=== PATIENT | female | born 1955 | race Asian ===

== ENCOUNTER 2016-09-15 09:49 | Inpatient (IN) | payer MEDICARE, MEDICAID ==
[~2016-09-15] VITALS: Ht 157.5 cm; Wt 54.8 kg
[~2016-09-15 09:49] MED LIST: AMLO10TA4 PO; ASPI81TA50 PO; CALC200T3 PO; ETHI1TAB PO; INSU100V8 SQ; LEVO100T5 PO; SODI650T PO
[2016-09-15] MEDS ORDERED: [UNRECOGNIZED DRUG - CODE] IJ (10:44)
[2016-09-15 11:08] LABS: ASPARTATE AMINO TRANSFERASE 37 U/L (15-37); BLOOD UREA NITROGEN 53 mg/dL (7-18)
[2016-09-15] MEDS ORDERED: SODIUM CHLORIDE FLUSH 10ML SYR IVF PRN (13:00)
[2016-09-15] MEDS ORDERED: DOCUSATE 100 MG CAPSULE PO PRN (14:00)
[2016-09-15] MEDS: HEPARIN 5,000 UNITS/ML, 1ML SQ SCH ×2 (14:00→22:02)
[2016-09-15] MEDS ORDERED: POLYETHYLENE GLYCOL 17 GM PACKET PO PRN (14:00)
[2016-09-15] MEDS ORDERED: LABETALOL 5MG/ML, 20ML IVPush PRN (14:00)
[2016-09-15] MEDS ORDERED: hydrALAzine 20 MG/ML, 1ML IV PRN (14:00)
[2016-09-15] MEDS ORDERED: ACETAMINOPHEN 325 MG TABLET PO PRN (14:00)
[2016-09-15] MEDS ORDERED: INSULIN DETEMIR 100 UNITS/ML, PEN SQ-INSULIN SCH (14:00)
[2016-09-15] MEDS ORDERED: ONDA4TAB13 SL (14:01)
[2016-09-15] MEDS ORDERED: FERR324T8 PO (14:01)
[2016-09-15] MEDS ORDERED: HYDR-3342 PO (14:01)
[2016-09-15] MEDS ORDERED: ROPI0.5T2 PO (14:01)
[2016-09-15] MEDS ORDERED: CALC667C PO (14:01)
[2016-09-15] MEDS ORDERED: CHOL3000 PO (14:01)
[2016-09-15] MEDS: HYDROcodone/APAP 5/325 TABLET PO PRN ×2 (16:55→18:15)
[2016-09-15] MEDS: CEFTRIAXONE PMX 1GM/50ML 50 ML IV SCH (16:55)
[2016-09-15] MEDS: INSULIN ASPART 100 UNITS/ML, PEN SQ-INSULIN SCH ×2 (18:00→22:01)
[2016-09-15 19:55] VITALS: BP 156/65
[2016-09-15] MEDS: SODIUM CHLORIDE FLUSH 3ML SYRINGE IVF SCH (21:00)
[2016-09-15] MEDS ORDERED: GENTAMICIN CRM 0.1%, 30GM TP PRN (22:00)
[2016-09-15] MEDS: morphine SULFATE 10 MG/ML, 1ML IVPush PRN (22:07)
[2016-09-16 01:32] VITALS: BP 160/73
[2016-09-16 05:26] LABS: BLOOD UREA NITROGEN 54 mg/dL (7-18)
[2016-09-16] MEDS: HEPARIN 5,000 UNITS/ML, 1ML SQ SCH ×3 (05:33→21:08)
[2016-09-16 05:34] LABS: TOTAL IRON BINDING CAPACITY 217 mcg/dL (250-450)
[2016-09-16] MEDS: LEVOTHYROXINE 100 MCG TABLET PO SCH (08:14)
[2016-09-16] MEDS: SODIUM BICARBONATE 650 MG TABLET PO SCH (08:14)
[2016-09-16] MEDS: INSULIN ASPART 100 UNITS/ML, PEN SQ-INSULIN SCH ×4 (08:14→21:08)
[2016-09-16] MEDS: ETHINYL ESTRADIOL HOMEMEDPO SCH (08:15)
[2016-09-16] MEDS: AMLODIPINE 5 MG TABLET PO SCH (08:15)
[2016-09-16] MEDS: SENNA/DOCUSATE TABLET PO SCH (08:15)
[2016-09-16] MEDS: ASPIRIN 81 MG TABLET EC PO SCH (08:15)
[2016-09-16] MEDS: [UNRECOGNIZED DRUG - OTHER] HOMEMEDPO SCH (08:15)
[2016-09-16] MEDS: DROSPIRENONE HOMEMEDPO SCH (08:15)
[2016-09-16] MEDS: SODIUM CHLORIDE FLUSH 3ML SYRINGE IVF SCH ×2 (08:15→20:36)
[2016-09-16] MEDS: CALCIUM CARBONATE 500 MG TAB.CHEW PO SCH (08:17)
[2016-09-16 08:25] VITALS: BP 141/68
[2016-09-16] MEDS ORDERED: DARBEPOETIN 60 MCG/ML SQ SCH (09:00)
[2016-09-16] MEDS ORDERED: ERGOCALCIFEROL 50,000 UNIT CAPSULE PO SCH (09:30)
[2016-09-16] MEDS: HYDROcodone/APAP 5/325 TABLET PO PRN (10:02)
[2016-09-16] MEDS: CEFTRIAXONE PMX 1GM/50ML 50 ML IV SCH (14:05)
[2016-09-16 14:12] VITALS: BP 165/76
[2016-09-16 19:14] VITALS: BP 160/71
[2016-09-16] MEDS: ONDANSETRON 2MG/ML, 2ML IVPush PRN (20:10)
[2016-09-16] MEDS ORDERED: MORPHINE SULFATE 4 MG/ML, 1ML ONE (21:04)
[2016-09-16] MEDS: ROPINIROLE 1MG TABLET PO PRN (21:08)
[2016-09-16] MEDS: morphine SULFATE 10 MG/ML, 1ML IVPush PRN (21:09)
[2016-09-17] MEDS: HEPARIN 5,000 UNITS/ML, 1ML SQ SCH ×3 (05:25→21:57)
[2016-09-17 07:38] VITALS: BP 180/76
[2016-09-17] MEDS: SENNA/DOCUSATE TABLET PO SCH (07:54)
[2016-09-17] MEDS: SODIUM BICARBONATE 650 MG TABLET PO SCH (07:55)
[2016-09-17] MEDS: LEVOTHYROXINE 100 MCG TABLET PO SCH (07:55)
[2016-09-17] MEDS: ASPIRIN 81 MG TABLET EC PO SCH (07:55)
[2016-09-17] MEDS: SODIUM CHLORIDE FLUSH 3ML SYRINGE IVF SCH ×2 (07:55→21:00)
[2016-09-17] MEDS: AMLODIPINE 5 MG TABLET PO SCH (07:55)
[2016-09-17] MEDS: INSULIN ASPART 100 UNITS/ML, PEN SQ-INSULIN SCH ×4 (07:56→21:58)
[2016-09-17] MEDS: DROSPIRENONE HOMEMEDPO SCH (07:59)
[2016-09-17] MEDS: ETHINYL ESTRADIOL HOMEMEDPO SCH (07:59)
[2016-09-17] MEDS: [UNRECOGNIZED DRUG - OTHER] HOMEMEDPO SCH (07:59)
[2016-09-17] MEDS: CALCIUM CARBONATE 500 MG TAB.CHEW PO SCH (08:00)
[2016-09-17] MEDS: ONDANSETRON 2MG/ML, 2ML IVPush PRN ×2 (08:12→20:10)
[2016-09-17] MEDS: CEFTRIAXONE PMX 1GM/50ML 50 ML IV SCH (14:21)
[2016-09-17 14:47] VITALS: BP 161/89
[2016-09-17 20:08] VITALS: BP 148/65
[2016-09-18 01:17] VITALS: BP 165/74
[2016-09-18] MEDS: HEPARIN 5,000 UNITS/ML, 1ML SQ SCH ×3 (05:50→21:08)
[2016-09-18 07:36] VITALS: BP 170/78
[2016-09-18] MEDS: LEVOTHYROXINE 100 MCG TABLET PO SCH (08:52)
[2016-09-18] MEDS: INSULIN ASPART 100 UNITS/ML, PEN SQ-INSULIN SCH ×4 (08:52→21:07)
[2016-09-18] MEDS: ASPIRIN 81 MG TABLET EC PO SCH (08:53)
[2016-09-18] MEDS: SENNA/DOCUSATE TABLET PO SCH (08:53)
[2016-09-18] MEDS: AMLODIPINE 5 MG TABLET PO SCH (08:53)
[2016-09-18] MEDS: CALCIUM CARBONATE 500 MG TAB.CHEW PO SCH (08:54)
[2016-09-18] MEDS: SODIUM BICARBONATE 650 MG TABLET PO SCH (08:55)
[2016-09-18] MEDS: SODIUM CHLORIDE FLUSH 3ML SYRINGE IVF SCH ×2 (08:57→21:00)
[2016-09-18] MEDS: ETHINYL ESTRADIOL HOMEMEDPO SCH (08:57)
[2016-09-18] MEDS: DROSPIRENONE HOMEMEDPO SCH (08:57)
[2016-09-18] MEDS: [UNRECOGNIZED DRUG - OTHER] HOMEMEDPO SCH (08:57)
[2016-09-18 12:51] VITALS: BP 174/95
[2016-09-18] MEDS: CEFTRIAXONE PMX 1GM/50ML 50 ML IV SCH (13:52)
[2016-09-18 19:35] VITALS: BP 146/67
[2016-09-18] MEDS: ONDANSETRON 2MG/ML, 2ML IVPush PRN (21:07)
[2016-09-18] MEDS: ROPINIROLE 1MG TABLET PO PRN (22:16)
[2016-09-19 04:00] VITALS: BP 166/80
[2016-09-19] MEDS: HEPARIN 5,000 UNITS/ML, 1ML SQ SCH ×3 (05:59→20:09)
[2016-09-19] MEDS: INSULIN ASPART 100 UNITS/ML, PEN SQ-INSULIN SCH ×4 (07:00→20:21)
[2016-09-19 07:27] VITALS: BP 183/81
[2016-09-19] MEDS: AMLODIPINE 5 MG TABLET PO SCH ×2 (07:59→20:09)
[2016-09-19] MEDS: ASPIRIN 81 MG TABLET EC PO SCH (07:59)
[2016-09-19] MEDS: [UNRECOGNIZED DRUG - OTHER] HOMEMEDPO SCH (08:00)
[2016-09-19] MEDS: SENNA/DOCUSATE TABLET PO SCH (08:00)
[2016-09-19] MEDS: DROSPIRENONE HOMEMEDPO SCH (08:00)
[2016-09-19] MEDS: ETHINYL ESTRADIOL HOMEMEDPO SCH (08:00)
[2016-09-19] MEDS: SODIUM BICARBONATE 650 MG TABLET PO SCH (08:00)
[2016-09-19] MEDS: LEVOTHYROXINE 100 MCG TABLET PO SCH (08:00)
[2016-09-19] MEDS: SODIUM CHLORIDE FLUSH 3ML SYRINGE IVF SCH ×2 (08:02→20:13)
[2016-09-19] MEDS: CALCIUM CARBONATE 500 MG TAB.CHEW PO SCH (09:00)
[2016-09-19 13:28] VITALS: BP 160/80
[2016-09-19] MEDS: ONDANSETRON 2MG/ML, 2ML IVPush PRN ×2 (14:00→20:09)
[2016-09-19] MEDS: CEFTRIAXONE PMX 1GM/50ML 50 ML IV SCH (14:00)
[2016-09-19 19:57] VITALS: BP 170/79
[2016-09-19] MEDS: HYDROcodone/APAP 5/325 TABLET PO PRN (20:21)
[2016-09-20 02:18] VITALS: BP 156/79
[2016-09-20] MEDS: HEPARIN 5,000 UNITS/ML, 1ML SQ SCH ×3 (06:00→21:16)
[2016-09-20] MEDS: LEVOTHYROXINE 100 MCG TABLET PO SCH (08:30)
[2016-09-20] MEDS: SODIUM BICARBONATE 650 MG TABLET PO SCH (08:30)
[2016-09-20] MEDS: AMLODIPINE 5 MG TABLET PO SCH ×2 (08:30→21:15)
[2016-09-20] MEDS: INSULIN ASPART 100 UNITS/ML, PEN SQ-INSULIN SCH ×4 (08:30→21:16)
[2016-09-20] MEDS: SENNA/DOCUSATE TABLET PO SCH (08:30)
[2016-09-20] MEDS: CALCIUM CARBONATE 500 MG TAB.CHEW PO SCH ×2 (08:31→08:33)
[2016-09-20] MEDS: ASPIRIN 81 MG TABLET EC PO SCH (09:00)
[2016-09-20] MEDS: SODIUM CHLORIDE FLUSH 3ML SYRINGE IVF SCH ×2 (09:00→21:17)
[2016-09-20] MEDS: DROSPIRENONE HOMEMEDPO SCH (09:00)
[2016-09-20] MEDS: [UNRECOGNIZED DRUG - OTHER] HOMEMEDPO SCH (09:00)
[2016-09-20] MEDS: ETHINYL ESTRADIOL HOMEMEDPO SCH (09:00)
[2016-09-20 09:30] VITALS: BP 155/89
[2016-09-20 13:17] VITALS: BP 165/73
[2016-09-20] MEDS: CEFTRIAXONE PMX 1GM/50ML 50 ML IV SCH (14:08)
[2016-09-20] MEDS ORDERED: PROTAMINE SULFATE 10 MG/ML, 5ML ONE (15:25)
[2016-09-20] MEDS ORDERED: HEPARIN 1,000 UNITS/ML, 30ML ONE (15:25)
[2016-09-20] MEDS ORDERED: THROMBIN 5,000 UNIT VIAL TP ONE (15:25)
[2016-09-20] MEDS ORDERED: BUPIVACAINE/PF 0.5% ONE (15:25)
[2016-09-20] MEDS ORDERED: HEPARIN 1,000 UNITS/ML, 10ML ONE (15:25)
[2016-09-20] MEDS ORDERED: FENTANYL PF 250 MCG/5ML ONE (16:17)
[2016-09-20] MEDS ORDERED: NEOSTIGMINE 1 MG/ML, 10ML ONE (16:19)
[2016-09-20] MEDS ORDERED: CEFAZOLIN 1,000 MG ONE (16:19)
[2016-09-20] MEDS ORDERED: PHENYLEPHRINE 10 MG/ML ONE (16:19)
[2016-09-20] MEDS ORDERED: PROPOFOL 10 MG/ML, 20ML ONE (16:19)
[2016-09-20] MEDS ORDERED: ONDANSETRON 2MG/ML, 2ML ONE (16:19)
[2016-09-20] MEDS ORDERED: LIDOCAINE 2%, 10ML ONE (16:19)
[2016-09-20] MEDS ORDERED: GLYCOPYRROLATE 0.2MG/1ML ONE (16:19)
[2016-09-20] MEDS ORDERED: ROCURONIUM 10 MG/ML ONE (16:19)
[2016-09-20] MEDS ORDERED: DEXAMETHASONE 4 MG/ML, 1ML ONE (16:19)
[2016-09-20] MEDS ORDERED: FENTANYL PF 100 MCG/2ML IV PRN (18:00)
[2016-09-20] MEDS ORDERED: PROMETHAZINE 25 MG/ML, 1ML IV PRN (18:00)
[2016-09-20] MEDS ORDERED: HYDROmorphone 1 MG/ML, 1ML IV PRN (18:00)
[2016-09-20] MEDS ORDERED: ONDANSETRON 2MG/ML, 2ML IVPush PRN (18:00)
[2016-09-20] MEDS ORDERED: LABETALOL 5MG/ML, 20ML IV PRN (18:00)
[2016-09-20] MEDS ORDERED: OXYcodone 5 MG/5 ML ORAL.SOL UDC PO PRN (18:00)
[2016-09-20] MEDS ORDERED: hydrALAzine 20 MG/ML, 1ML IV PRN (18:00)
[2016-09-20] MEDS ORDERED: ACETAMINOPHEN 325 MG TABLET PO PRN (18:00)
[2016-09-20 20:15] VITALS: BP 147/69
[2016-09-20] MEDS: ROPINIROLE 1MG TABLET PO PRN (22:02)
[2016-09-20] MEDS: HYDROcodone/APAP 5/325 TABLET PO PRN (23:02)
[2016-09-21 02:35] VITALS: BP 107/60
[2016-09-21] MEDS: HYDROcodone/APAP 5/325 TABLET PO PRN ×3 (05:36→17:12)
[2016-09-21] MEDS: HEPARIN 5,000 UNITS/ML, 1ML SQ SCH ×2 (05:36→14:21)
[2016-09-21] MEDS: INSULIN ASPART 100 UNITS/ML, PEN SQ-INSULIN SCH ×3 (07:39→16:37)
[2016-09-21] MEDS: ETHINYL ESTRADIOL HOMEMEDPO SCH (08:51)
[2016-09-21] MEDS: [UNRECOGNIZED DRUG - OTHER] HOMEMEDPO SCH (08:51)
[2016-09-21] MEDS: DROSPIRENONE HOMEMEDPO SCH (08:51)
[2016-09-21] MEDS: ASPIRIN 81 MG TABLET EC PO SCH (08:52)
[2016-09-21] MEDS: AMLODIPINE 5 MG TABLET PO SCH (08:52)
[2016-09-21] MEDS: SODIUM CHLORIDE FLUSH 3ML SYRINGE IVF SCH (08:52)
[2016-09-21] MEDS: CALCIUM CARBONATE 500 MG TAB.CHEW PO SCH (08:53)
[2016-09-21] MEDS: LEVOTHYROXINE 100 MCG TABLET PO SCH (08:53)
[2016-09-21] MEDS: SENNA/DOCUSATE TABLET PO SCH (08:53)
[2016-09-21] MEDS: SODIUM BICARBONATE 650 MG TABLET PO SCH (08:53)
[2016-09-21 09:30] VITALS: BP 160/74
[2016-09-21 13:23] VITALS: BP 133/74
[2016-09-21] MEDS: CEFTRIAXONE PMX 1GM/50ML 50 ML IV SCH (14:21)
[2016-09-21] MEDS ORDERED: CALC200T24 PO (14:26)
[2016-09-21] MEDS ORDERED: HYDR-3240 PO (14:26)
[2016-09-21] MEDS ORDERED: ERGO500017 PO (14:26)
[2016-09-21] MEDS ORDERED: GENT30CR TP (14:26)
[2016-09-21] MEDS ORDERED: INSU100I18 SQ-INSULIN (14:26)
[2016-09-21] MEDS ORDERED: DOCU-30 PO (14:26)
[2016-09-21] MEDS ORDERED: POLY17PO5 PO (14:26)
[2016-09-21] MEDS: ONDANSETRON 2MG/ML, 2ML IVPush PRN (17:46)
== END 2016-09-21 18:00 | disposition home health service (06) | DRG 673 ==
LOC: ED 13:11 → SUATTDRO 13:26 → EDIP 13:35 → 4EST 15:05 → 4WST 20:49
PROVIDERS: ADMIT Family Medicine; ATTEND Family Medicine
PROC: 0T9B70Z Drainage of Bladder with Drainage Device, Via Natural or Artificial Opening (ICD-10-PCS; principal; 2016-09-15)
PROC: 5A1D60Z (ICD-10-PCS; 2016-09-15)
PROC: 031C0ZF Bypass Left Radial Artery to Lower Arm Vein, Open Approach (ICD-10-PCS; 2016-09-20)
DX: I12.0 Hypertensive chronic kidney disease with stage 5 chronic kidney disease or end stage renal disease (principal); N18.6 End stage renal disease; E43 Unspecified severe protein-calorie malnutrition; N17.9 Acute kidney failure, unspecified; E87.1 Hypo-osmolality and hyponatremia; N39.0 Urinary tract infection, site not specified; D63.1 Anemia in chronic kidney disease; E03.9 Hypothyroidism, unspecified; E11.22 Type 2 diabetes mellitus with diabetic chronic kidney disease; E11.65 Type 2 diabetes mellitus with hyperglycemia; E55.9 Vitamin D deficiency, unspecified; E78.5 Hyperlipidemia, unspecified; E87.70 Fluid overload, unspecified; K59.00 Constipation, unspecified; M54.5 Low back pain; N31.9 Neuromuscular dysfunction of bladder, unspecified; Z80.42 Family history of malignant neoplasm of prostate; Z83.3 Family history of diabetes mellitus; Z84.1 Family history of disorders of kidney and ureter; Z99.2 Dependence on renal dialysis; Z88.8 Allergy status to other drugs, medicaments and biological substances; Z88.6 Allergy status to analgesic agent; Z90.49 Acquired absence of other specified parts of digestive tract; Z68.22 Body mass index [BMI] 22.0-22.9, adult; N32.3 Diverticulum of bladder; E11.43 Type 2 diabetes mellitus with diabetic autonomic (poly)neuropathy
CPT/HCPCS: 36415; 80048; 80053; 81001; 82306; 82330; 82728; 82803; 82947; 82962; 83540; 83550; 83735; 83970; 84100; 84132; 84295; 85014; 85025; 86480; 86704; 86706; 86708; 86803; 87086; 87340; 93005; 96372; J0690; J0696; J0881; J1100; J1644; J1815; J2405; J2704; J2710; J2720; J3010; J3490; C1757; J2270; J2370

== ENCOUNTER 2016-10-14 21:14 | Inpatient (IN) | payer MEDICARE, MEDICAID ==
[~2016-10-14] VITALS: Ht 157.5 cm; Wt 59.2 kg
[~2016-10-14 21:14] MED LIST changes: +CALC200T24 PO; +CALC667C PO; +CHOL3000 PO; +DOCU-30 PO; +ERGO500017 PO; +FERR324T8 PO; +GENT30CR TP; +HYDR-3240 PO; +HYDR-3342 PO; +INSU100I18 SQ-INSULIN; +ONDA4TAB13 SL; +POLY17PO5 PO; +ROPI0.5T2 PO; +[UNRECOGNIZED DRUG - CODE] IJ
[2016-10-14] MEDS ORDERED: ONDANSETRON 2MG/ML, 2ML ONE (22:17)
[2016-10-14] MEDS ORDERED: FAMOTIDINE 20 MG/2 ML ONE (22:18)
[2016-10-14] MEDS ORDERED: ONDANSETRON 2MG/ML, 2ML IVPush ONE (22:30)
[2016-10-14] MEDS ORDERED: SODIUM CHLORIDE FLUSH 10ML SYR IVF ONE (22:30)
[2016-10-14] MEDS ORDERED: FAMOTIDINE 20 MG/2 ML IVP ONE (22:30)
[2016-10-14] MEDS ORDERED: SODIUM CHLORIDE 0.9% 1,000ML IVBOLUS ONE (22:30)
[2016-10-14 22:56] LABS: BLOOD UREA NITROGEN 50 mg/dL (7-18)
[2016-10-14 23:01] LABS: ASPARTATE AMINO TRANSFERASE 34 U/L (15-37)
[2016-10-15 01:14] VITALS: BP 163/74
[2016-10-15 01:20] VITALS: BP 163/74
[2016-10-15] MEDS ORDERED: SODIUM CHLORIDE 0.9% 1,000 ML IV SCH (01:29)
[2016-10-15] MEDS: INSULIN DETEMIR 100 UNITS/ML, PEN SQ-INSULIN SCH ×2 (01:30→21:28)
[2016-10-15] MEDS ORDERED: DOCUSATE 100 MG CAPSULE PO PRN (01:30)
[2016-10-15] MEDS ORDERED: METOCLOPRAMIDE 5 MG/ML, 2ML IVPush PRN (01:30)
[2016-10-15] MEDS ORDERED: LABETALOL 5MG/ML, 20ML IVPush PRN (01:30)
[2016-10-15] MEDS ORDERED: POLYETHYLENE GLYCOL 17 GM PACKET PO PRN (01:30)
[2016-10-15] MEDS ORDERED: PROMETHAZINE 25 MG/ML, 1ML IM PRN (01:30)
[2016-10-15] MEDS ORDERED: GENTAMICIN CRM 0.1%, 30GM TP PRN (01:30)
[2016-10-15] MEDS ORDERED: ERGOCALCIFEROL 50,000 UNIT CAPSULE PO SCH (01:30)
[2016-10-15] MEDS ORDERED: ENALAPRILAT 1.25 MG/ML, 2ML IV PRN (01:30)
[2016-10-15] MEDS ORDERED: hydrALAzine 20 MG/ML, 1ML IV PRN (01:30)
[2016-10-15] MEDS: HEPARIN 5,000 UNITS/ML, 1ML SQ SCH ×3 (02:14→18:33)
[2016-10-15] MEDS: LEVOTHYROXINE 100 MCG TABLET PO SCH (05:56)
[2016-10-15] MEDS: ONDANSETRON 2MG/ML, 2ML IVPush PRN (06:24)
[2016-10-15 06:40] VITALS: BP 181/81
[2016-10-15] MEDS: INSULIN ASPART 100 UNITS/ML, PEN SQ-INSULIN SCH ×4 (08:00→21:00)
[2016-10-15] MEDS: ROPINIROLE 0.5MG TABLET PO SCH ×3 (10:04→18:34)
[2016-10-15] MEDS: CALCIUM ACETATE 667 MG CAPSULE PO SCH ×3 (10:04→18:15)
[2016-10-15 10:26] LABS: BLOOD UREA NITROGEN 50 mg/dL (7-18)
[2016-10-15 11:03] LABS: PATH.CAST-FLAG NOT PRESENT; SPERM-FLAG NOT PRESENT; XTAL-FLAG NOT PRESENT; YLC-FLAG NOT PRESENT
[2016-10-15] MEDS: POLYETHYLENE GLYCOL 17 GM PACKET PO SCH (11:50)
[2016-10-15] MEDS: AMLODIPINE 5 MG TABLET PO SCH (11:51)
[2016-10-15] MEDS: ASPIRIN 81 MG TABLET EC PO SCH (11:51)
[2016-10-15] MEDS: DOCUSATE 100 MG CAPSULE PO SCH ×2 (11:51→21:28)
[2016-10-15 12:41] VITALS: BP 196/92
[2016-10-15 16:02] VITALS: BP 151/76
[2016-10-15] MEDS: CEFTRIAXONE PMX 1GM/50ML 50 ML IV SCH (16:26)
[2016-10-15] MEDS: ACETAMINOPHEN 325 MG TABLET PO PRN (19:51)
[2016-10-15 20:47] VITALS: BP 167/72
[2016-10-16] MEDS: ONDANSETRON 2MG/ML, 2ML IVPush PRN ×3 (00:56→14:03)
[2016-10-16 00:58] LABS: POTASSIUM,URINE RANDOM 16 mmol/L
[2016-10-16] MEDS: HEPARIN 5,000 UNITS/ML, 1ML SQ SCH ×3 (01:15→17:30)
[2016-10-16 02:50] VITALS: BP 144/77
[2016-10-16] MEDS ORDERED: DEXTROSE 50%, 50ML SYRINGE ONE (03:44)
[2016-10-16] MEDS: DEXTROSE 50%, 50ML SYRINGE IVPush PRN ×2 (03:55→07:39)
[2016-10-16] MEDS ORDERED: DEXTROSE 4 GM TAB.CHEW PO PRN (04:00)
[2016-10-16] MEDS ORDERED: GLUCAGON 1 MG IM PRN (04:00)
[2016-10-16 04:26] LABS: ASPARTATE AMINO TRANSFERASE 29 U/L (15-37); BLOOD UREA NITROGEN 45 mg/dL (7-18)
[2016-10-16] MEDS: LEVOTHYROXINE 100 MCG TABLET PO SCH (05:38)
[2016-10-16] MEDS: INSULIN ASPART 100 UNITS/ML, PEN SQ-INSULIN SCH ×4 (07:00→20:20)
[2016-10-16 07:23] VITALS: BP 160/70
[2016-10-16] MEDS ORDERED: SODIUM CHLORIDE 0.9% 1,000 ML IV ONE (09:00)
[2016-10-16] MEDS: AMLODIPINE 5 MG TABLET PO SCH (09:53)
[2016-10-16] MEDS: CALCIUM ACETATE 667 MG CAPSULE PO SCH ×3 (09:53→17:29)
[2016-10-16] MEDS: DOCUSATE 100 MG CAPSULE PO SCH ×2 (09:53→20:40)
[2016-10-16] MEDS: ASPIRIN 81 MG TABLET EC PO SCH (09:53)
[2016-10-16] MEDS: ROPINIROLE 0.5MG TABLET PO SCH ×4 (09:53→22:29)
[2016-10-16] MEDS: POLYETHYLENE GLYCOL 17 GM PACKET PO SCH (09:53)
[2016-10-16] MEDS: SODIUM CHLORIDE FLUSH 10ML SYR IVF SCH ×2 (09:54→20:41)
[2016-10-16] MEDS ORDERED: VANCOMYCIN PMX 1GM/200ML 200 ML IV ONE (14:00)
[2016-10-16 14:39] VITALS: BP 182/85
[2016-10-16] MEDS ORDERED: PHARMACOKINETIC CONSULTATION MC ONE (15:00)
[2016-10-16] MEDS ORDERED: VANCOMYCIN 1,100 MG in SODIUM CHLORIDE 0.9% 250 ML IV ONE (15:00)
[2016-10-16] MEDS ORDERED: PHARMACOKINETIC MONITORING MC PRN (15:00)
[2016-10-16] MEDS ORDERED: VANCOMYCIN PER PHARMACY MC PRN (15:00)
[2016-10-16] MEDS: CEFTRIAXONE PMX 1GM/50ML 50 ML IV SCH (15:37)
[2016-10-16 20:42] VITALS: BP 179/79
[2016-10-16] MEDS: ACETAMINOPHEN 325 MG TABLET PO PRN (20:48)
[2016-10-16 22:01] VITALS: BP 164/81
[2016-10-17] MEDS: HEPARIN 5,000 UNITS/ML, 1ML SQ SCH ×2 (00:53→09:59)
[2016-10-17 01:19] VITALS: BP 181/85
[2016-10-17 01:28] VITALS: BP 186/88
[2016-10-17 03:05] VITALS: BP 169/92
[2016-10-17] MEDS: LEVOTHYROXINE 100 MCG TABLET PO SCH (05:18)
[2016-10-17 06:24] VITALS: BP 179/79
[2016-10-17] MEDS: INSULIN ASPART 100 UNITS/ML, PEN SQ-INSULIN SCH ×2 (07:00→11:00)
[2016-10-17] MEDS: AMLODIPINE 5 MG TABLET PO SCH (08:10)
[2016-10-17] MEDS: ASPIRIN 81 MG TABLET EC PO SCH (08:10)
[2016-10-17] MEDS: DOCUSATE 100 MG CAPSULE PO SCH (08:11)
[2016-10-17] MEDS: SODIUM CHLORIDE FLUSH 10ML SYR IVF SCH (08:11)
[2016-10-17] MEDS: POLYETHYLENE GLYCOL 17 GM PACKET PO SCH (08:11)
[2016-10-17] MEDS: ROPINIROLE 0.5MG TABLET PO SCH ×2 (08:11→11:11)
[2016-10-17] MEDS: CALCIUM ACETATE 667 MG CAPSULE PO SCH ×2 (08:11→11:11)
[2016-10-17 08:24] LABS: BLOOD UREA NITROGEN 43 mg/dL (7-18)
[2016-10-17] MEDS: ONDANSETRON 2MG/ML, 2ML IVPush PRN (12:05)
[2016-10-17] MEDS ORDERED: AMOX-291 PO (14:45)
[2016-10-17] MEDS ORDERED: AMOXICILLIN 500 MG CAPSULE PO SCH (21:00)
== END 2016-10-17 15:46 | disposition home or self-care (01) | DRG 682 ==
LOC: ED 23:29 → EDIP 23:53 → 4WST 10-15 00:30 → DCLOUNGE 10-17 15:24
PROVIDERS: ADMIT Family Medicine; ATTEND Internal Medicine
PROC: 5A1D60Z (ICD-10-PCS; principal; 2016-10-14)
DX: I12.0 Hypertensive chronic kidney disease with stage 5 chronic kidney disease or end stage renal disease (principal); N18.6 End stage renal disease; E43 Unspecified severe protein-calorie malnutrition; E87.1 Hypo-osmolality and hyponatremia; N39.0 Urinary tract infection, site not specified; D63.1 Anemia in chronic kidney disease; E11.22 Type 2 diabetes mellitus with diabetic chronic kidney disease; R33.9 Retention of urine, unspecified; R11.2 Nausea with vomiting, unspecified; N20.0 Calculus of kidney; K57.30 Diverticulosis of large intestine without perforation or abscess without bleeding; I51.7 Cardiomegaly; J44.9 Chronic obstructive pulmonary disease, unspecified; E78.5 Hyperlipidemia, unspecified; K59.00 Constipation, unspecified; E11.649 Type 2 diabetes mellitus with hypoglycemia without coma; B95.2 Enterococcus as the cause of diseases classified elsewhere; E11.43 Type 2 diabetes mellitus with diabetic autonomic (poly)neuropathy; K31.84 Gastroparesis; Z99.2 Dependence on renal dialysis; Z90.49 Acquired absence of other specified parts of digestive tract; Z79.4 Long term (current) use of insulin; Z88.8 Allergy status to other drugs, medicaments and biological substances; Z68.23 Body mass index [BMI] 23.0-23.9, adult
CPT/HCPCS: 36415; 74176; 80048; 80053; 80202; 81001; 82436; 82947; 82962; 83735; 83880; 83930; 83935; 84100; 84133; 84300; 85025; 87077; 87086; 87186; 93005; 96361; 96374; 96375; J0696; J1644; J1815; J2405; J2550; J3370; J0360; J2765; J7030; J7050; S0028

== ENCOUNTER 2016-11-09 09:48 | Inpatient (IN) | payer MEDICARE, MEDICAID ==
[~2016-11-09] VITALS: Ht 157.5 cm; Wt 41.8 kg
[~2016-11-09 09:48] MED LIST changes: +AMOX-291 PO
[2016-11-09 10:33] LABS: HEMATOCRIT 32.5 % (34.6-47.8); HEMOGLOBIN 11.1 g/dL (11.7-16.4); WHITE BLOOD COUNT 9.6 x10^3/uL (3.4-10)
[2016-11-09 10:46] LABS: ASPARTATE AMINO TRANSFERASE 55 U/L (15-37); BLOOD UREA NITROGEN 66 mg/dL (7-18)
[2016-11-09] MEDS ORDERED: SODIUM CHLORIDE 0.9% 1,000 ML IV ONE ×2 (11:12→11:33)
[2016-11-09] MEDS ORDERED: SODIUM CHLORIDE FLUSH 10ML SYR IVF PRN (12:00)
[2016-11-09] MEDS ORDERED: ONDANSETRON ODT 4 MG PO PRN (13:00)
[2016-11-09] MEDS ORDERED: ERGOCALCIFEROL 50,000 UNIT CAPSULE PO SCH (13:00)
[2016-11-09] MEDS ORDERED: HYDROcodone/APAP 5/325 TABLET PO PRN (13:00)
[2016-11-09] MEDS ORDERED: ACETAMINOPHEN 325 MG TABLET PO PRN (13:00)
[2016-11-09] MEDS ORDERED: ONDANSETRON 2MG/ML, 2ML IVPush PRN (13:00)
[2016-11-09] MEDS ORDERED: HEPARIN 5,000 UNITS/ML, 1ML SQ SCH (13:00)
[2016-11-09 14:30] VITALS: BP_SYST 132; BP_SYST 207; BP_DIAS 80; BP_DIAS 84
[2016-11-09] MEDS: SODIUM CHLORIDE 0.9% 1,000 ML IV SCH (15:02)
[2016-11-09] MEDS ORDERED: HEPARIN 5,000 UNITS/ML, 1ML SQ ONE (15:30)
[2016-11-09] MEDS: INSULIN ASPART 100 UNITS/ML, PEN SQ-INSULIN SCH ×2 (16:00→21:00)
[2016-11-09] MEDS: LABETALOL 5MG/ML, 20ML IVPush PRN ×2 (17:45→22:12)
[2016-11-09] MEDS: CALCIUM ACETATE 667 MG CAPSULE PO SCH (18:05)
[2016-11-09] MEDS: ROPINIROLE 0.5MG TABLET PO SCH (18:05)
[2016-11-09 18:18] VITALS: BP 182/94
[2016-11-09] MEDS: HEPARIN 5,000 UNITS/ML, 1ML SQ SCH (21:50)
[2016-11-09 22:05] VITALS: BP 202/80
[2016-11-10] VITALS: BP 194/85
[2016-11-10] MEDS ORDERED: ZOLPIDEM 5MG TABLET PO ONE (00:30)
[2016-11-10] MEDS ORDERED: GENTAMICIN CRM 0.1%, 30GM TP SCH (01:30)
[2016-11-10] MEDS: SODIUM CHLORIDE 0.9% 1,000 ML IV SCH (02:07)
[2016-11-10 03:02] LABS: ASPARTATE AMINO TRANSFERASE 39 U/L (15-37); BLOOD UREA NITROGEN 72 mg/dL (7-18)
[2016-11-10 03:03] LABS: HEMATOCRIT 28.6 % (34.6-47.8); HEMOGLOBIN 9.6 g/dL (11.7-16.4); WHITE BLOOD COUNT 9.5 x10^3/uL (3.4-10)
[2016-11-10 03:30] VITALS: BP 204/89
[2016-11-10] MEDS: HEPARIN 5,000 UNITS/ML, 1ML SQ SCH ×3 (05:51→23:21)
[2016-11-10] MEDS: LABETALOL 5MG/ML, 20ML IVPush PRN (05:52)
[2016-11-10 06:03] VITALS: BP 178/86
[2016-11-10 07:25] LABS: HEP B SURF. AB 72.7 mIU/mL (0.0-10.0)
[2016-11-10] MEDS: CALCIUM ACETATE 667 MG CAPSULE PO SCH ×3 (08:00→17:40)
[2016-11-10] MEDS ORDERED: LEVOTHYROXINE 100 MCG TABLET PO SCH (09:00)
[2016-11-10] MEDS ORDERED: AMLODIPINE 5 MG TABLET PO SCH (09:00)
[2016-11-10] MEDS ORDERED: ASPIRIN 81 MG TABLET EC PO SCH (09:00)
[2016-11-10] MEDS: FERROUS GLUCONATE 324 MG TABLET PO SCH (09:54)
[2016-11-10] MEDS: ROPINIROLE 0.5MG TABLET PO SCH ×2 (09:54→16:04)
[2016-11-10] MEDS: CHOLECALCIFEROL 1,000 UNIT TABLET PO SCH (09:55)
[2016-11-10] MEDS: INSULIN ASPART 100 UNITS/ML, PEN SQ-INSULIN SCH ×4 (11:00→23:20)
[2016-11-10 12:15] VITALS: BP 175/77
[2016-11-10] MEDS ORDERED: ONDANSETRON ODT 4 MG PO PRN (15:00)
[2016-11-10] MEDS ORDERED: HYDROcodone/APAP 5/325 TABLET PO PRN (15:00)
[2016-11-10] MEDS ORDERED: ACETAMINOPHEN 325 MG TABLET PO PRN (15:00)
[2016-11-10] MEDS ORDERED: LABETALOL 5MG/ML, 20ML IVPush PRN (15:00)
[2016-11-10] MEDS ORDERED: ONDANSETRON 2MG/ML, 2ML IVPush PRN (15:00)
[2016-11-10 17:41] VITALS: BP 160/79
[2016-11-10 20:00] VITALS: BP 177/71
[2016-11-10] MEDS: AMLODIPINE 5 MG TABLET PO SCH (23:19)
[2016-11-11 02:00] VITALS: BP 186/82
[2016-11-11] MEDS ORDERED: LEVOTHYROXINE 100 MCG TABLET PO SCH (06:00)
[2016-11-11] MEDS: HEPARIN 5,000 UNITS/ML, 1ML SQ SCH (06:23)
[2016-11-11 09:00] VITALS: BP 174/83
[2016-11-11] MEDS ORDERED: ASPIRIN 81 MG TABLET EC PO SCH (09:00)
[2016-11-11] MEDS: ROPINIROLE 0.5MG TABLET PO SCH (09:18)
[2016-11-11] MEDS: CALCIUM ACETATE 667 MG CAPSULE PO SCH (09:18)
[2016-11-11] MEDS: FERROUS GLUCONATE 324 MG TABLET PO SCH (09:18)
[2016-11-11] MEDS: CHOLECALCIFEROL 1,000 UNIT TABLET PO SCH (09:18)
[2016-11-11] MEDS: AMLODIPINE 5 MG TABLET PO SCH (09:18)
[2016-11-11] MEDS: INSULIN ASPART 100 UNITS/ML, PEN SQ-INSULIN SCH (09:18)
[2016-11-11 10:30] LABS: BLOOD UREA NITROGEN 59 mg/dL (7-18)
== END 2016-11-11 12:35 | disposition home or self-care (01) | DRG 682 ==
LOC: ED 10:55 → EDIP 11:33 → 4WST 14:18 → DCLOUNGE 11-11 12:04
PROVIDERS: ADMIT Family Medicine; ATTEND Family Medicine
PROC: 5A1D60Z (ICD-10-PCS; principal; 2016-11-10)
DX: I13.11 Hypertensive heart and chronic kidney disease without heart failure, with stage 5 chronic kidney disease, or end stage renal disease (principal); N18.6 End stage renal disease; E43 Unspecified severe protein-calorie malnutrition; K31.84 Gastroparesis; E87.1 Hypo-osmolality and hyponatremia; E11.22 Type 2 diabetes mellitus with diabetic chronic kidney disease; E11.43 Type 2 diabetes mellitus with diabetic autonomic (poly)neuropathy; N25.81 Secondary hyperparathyroidism of renal origin; N39.0 Urinary tract infection, site not specified; E83.39 Other disorders of phosphorus metabolism; D63.1 Anemia in chronic kidney disease; D75.89 Other specified diseases of blood and blood-forming organs; E03.9 Hypothyroidism, unspecified; E55.9 Vitamin D deficiency, unspecified; G25.81 Restless legs syndrome; Z79.4 Long term (current) use of insulin; Z83.3 Family history of diabetes mellitus; Z99.2 Dependence on renal dialysis; Z88.8 Allergy status to other drugs, medicaments and biological substances
CPT/HCPCS: 36415; 80048; 80053; 81001; 82962; 83735; 83935; 84100; 84295; 85025; 86706; 87077; 87086; 87186; 87340; 93005; 96360; J1644; J1815; J2405; Q0162; J7030

== ENCOUNTER 2016-11-14 17:04 | Inpatient (IN) | payer MEDICARE, MEDICAID ==
[~2016-11-14] VITALS: Ht 157.5 cm; Wt 56.3 kg
[2016-11-14] MEDS ORDERED: HYDROmorphone 1 MG/ML, 1ML ONE (17:44)
[2016-11-14 17:54] LABS: HEMATOCRIT 31.4 % (34.6-47.8); HEMOGLOBIN 10.4 g/dL (11.7-16.4); WHITE BLOOD COUNT 8.9 x10^3/uL (3.4-10)
[2016-11-14] MEDS ORDERED: HYDROmorphone 1 MG/ML, 1ML IM ONE (18:00)
[2016-11-14 18:04] LABS: BLOOD UREA NITROGEN 61 mg/dL (7-18)
[2016-11-14] MEDS ORDERED: SODIUM CHLORIDE 0.9% 1,000 ML IV SCH ×2 (20:00→20:21)
[2016-11-14] MEDS ORDERED: ONDANSETRON 2MG/ML, 2ML IVPush PRN (20:00)
[2016-11-14] MEDS ORDERED: BISACODYL 10 MG SUPP PR PRN (20:00)
[2016-11-14] MEDS ORDERED: ERGOCALCIFEROL 50,000 UNIT CAPSULE PO SCH (20:00)
[2016-11-14] MEDS ORDERED: POLYETHYLENE GLYCOL 17 GM PACKET PO PRN (20:00)
[2016-11-14] MEDS ORDERED: ACETAMINOPHEN 325 MG TABLET PO PRN (20:00)
[2016-11-14] MEDS ORDERED: INSULIN ASPART 100 UNITS/ML, PEN SQ-INSULIN SCH (21:00)
[2016-11-14 21:13] VITALS: BP 173/79
[2016-11-14] MEDS: HEPARIN 5,000 UNITS/ML, 1ML SQ SCH (21:38)
[2016-11-14] MEDS: HYDROcodone/APAP 5/325 TABLET PO PRN (21:38)
[2016-11-14] MEDS: CALCIUM ACETATE 667 MG CAPSULE PO SCH (21:38)
[2016-11-14] MEDS: ROPINIROLE 0.5MG TABLET PO SCH (21:38)
[2016-11-14] MEDS: ONDANSETRON ODT 4 MG BC PRN (22:21)
[2016-11-14 23:15] VITALS: BP 178/78
[2016-11-14] MEDS: hydrALAzine 20 MG/ML, 1ML IVPush PRN (23:20)
[2016-11-14 23:45] VITALS: BP 186/84
[2016-11-15] MEDS: hydrALAzine 20 MG/ML, 1ML IVPush PRN (00:01)
[2016-11-15 01:49] VITALS: BP 186/85
[2016-11-15] MEDS ORDERED: hydrALAzine 20 MG/ML, 1ML ONE (02:27)
[2016-11-15] MEDS ORDERED: hydrALAzine 20 MG/ML, 1ML IV ONE (02:30)
[2016-11-15] MEDS ORDERED: HYDROmorphone 1 MG/ML, 1ML IM ONE (03:00)
[2016-11-15] MEDS ORDERED: HYDROmorphone 1 MG/ML, 1ML ONE (03:00)
[2016-11-15 04:00] VITALS: BP 168/75
[2016-11-15] MEDS ORDERED: hydrALAzine 20 MG/ML, 1ML IVPush PRN (04:00)
[2016-11-15 06:05] LABS: ASPARTATE AMINO TRANSFERASE 54 U/L (15-37); BLOOD UREA NITROGEN 64 mg/dL (7-18)
[2016-11-15 06:11] LABS: HEMATOCRIT 29.8 % (34.6-47.8); WHITE BLOOD COUNT 12.5 x10^3/uL (3.4-10)
[2016-11-15] MEDS: HEPARIN 5,000 UNITS/ML, 1ML SQ SCH ×3 (06:19→20:40)
[2016-11-15 06:20] LABS: POTASSIUM,URINE RANDOM 18 mmol/L
[2016-11-15 07:10] VITALS: BP 181/79
[2016-11-15] MEDS ORDERED: EPOETIN ALFA 10000 UNIT HOMEINJ SCH (09:00)
[2016-11-15] MEDS: SENNA/DOCUSATE TABLET PO SCH (09:00)
[2016-11-15] MEDS ORDERED: AMLODIPINE 5 MG TABLET PO SCH (09:00)
[2016-11-15] MEDS ORDERED: DARBEPOETIN 100 MCG/ML SQ SCH ×2 (09:00→20:30)
[2016-11-15] MEDS: ROPINIROLE 0.5MG TABLET PO SCH ×3 (09:05→16:49)
[2016-11-15] MEDS: LEVOTHYROXINE 100 MCG TABLET PO SCH (09:05)
[2016-11-15] MEDS: AMLODIPINE 5 MG TABLET PO SCH (09:05)
[2016-11-15] MEDS: ASPIRIN 81 MG TABLET EC PO SCH (09:05)
[2016-11-15] MEDS: CHOLECALCIFEROL 1,000 UNIT TABLET PO SCH (09:05)
[2016-11-15] MEDS: FERROUS GLUCONATE 324 MG TABLET PO SCH (09:05)
[2016-11-15] MEDS: CALCIUM ACETATE 667 MG CAPSULE PO SCH ×3 (09:05→16:49)
[2016-11-15] MEDS: CEFTRIAXONE PMX 1GM/50ML 50 ML IV SCH (11:40)
[2016-11-15] MEDS: INSULIN ASPART 100 UNITS/ML, PEN SQ-INSULIN SCH ×3 (11:41→20:40)
[2016-11-15] MEDS: HYDROcodone/APAP 5/325 TABLET PO PRN ×2 (12:50→20:41)
[2016-11-15 14:00] VITALS: BP 178/85
[2016-11-15 20:34] VITALS: BP 188/93
[2016-11-15] MEDS: ROPINIROLE 1MG TABLET PO SCH (20:39)
[2016-11-16 02:52] VITALS: BP 144/92
[2016-11-16 05:18] LABS: HEMATOCRIT 27.6 % (34.6-47.8); HEMOGLOBIN 9.3 g/dL (11.7-16.4); WHITE BLOOD COUNT 4.6 x10^3/uL (3.4-10)
[2016-11-16 05:46] LABS: ASPARTATE AMINO TRANSFERASE 47 U/L (15-37); BLOOD UREA NITROGEN 60 mg/dL (7-18); TOTAL IRON BINDING CAPACITY 208 mcg/dL (250-450)
[2016-11-16] MEDS: HEPARIN 5,000 UNITS/ML, 1ML SQ SCH ×3 (06:07→21:17)
[2016-11-16 07:09] VITALS: BP 157/72
[2016-11-16] MEDS: CHOLECALCIFEROL 1,000 UNIT TABLET PO SCH (09:06)
[2016-11-16] MEDS: INSULIN ASPART 100 UNITS/ML, PEN SQ-INSULIN SCH ×4 (09:07→21:00)
[2016-11-16] MEDS: LEVOTHYROXINE 100 MCG TABLET PO SCH (09:07)
[2016-11-16] MEDS: SENNA/DOCUSATE TABLET PO SCH (09:07)
[2016-11-16] MEDS: FERROUS GLUCONATE 324 MG TABLET PO SCH (09:08)
[2016-11-16] MEDS: AMLODIPINE 5 MG TABLET PO SCH (09:08)
[2016-11-16] MEDS: CALCIUM ACETATE 667 MG CAPSULE PO SCH ×3 (09:08→16:25)
[2016-11-16] MEDS: ASPIRIN 81 MG TABLET EC PO SCH (09:08)
[2016-11-16] MEDS: CEFTRIAXONE PMX 1GM/50ML 50 ML IV SCH (11:41)
[2016-11-16 12:35] VITALS: BP 150/70
[2016-11-16 19:25] VITALS: BP 135/68
[2016-11-16] MEDS: ROPINIROLE 1MG TABLET PO SCH (21:17)
[2016-11-16] MEDS: HYDROcodone/APAP 5/325 TABLET PO PRN (23:43)
[2016-11-17 02:00] VITALS: BP 176/83
[2016-11-17 03:12] VITALS: BP 151/74
[2016-11-17 05:44] LABS: BLOOD UREA NITROGEN 62 mg/dL (7-18)
[2016-11-17] MEDS: HEPARIN 5,000 UNITS/ML, 1ML SQ SCH (05:49)
[2016-11-17] MEDS ORDERED: LEVOTHYROXINE 125 MCG TABLET PO SCH (06:00)
[2016-11-17 07:06] VITALS: BP 160/81
[2016-11-17] MEDS: INSULIN ASPART 100 UNITS/ML, PEN SQ-INSULIN SCH ×2 (08:17→12:43)
[2016-11-17] MEDS: CHOLECALCIFEROL 1,000 UNIT TABLET PO SCH (08:18)
[2016-11-17] MEDS: FERROUS GLUCONATE 324 MG TABLET PO SCH (08:18)
[2016-11-17] MEDS: CALCIUM ACETATE 667 MG CAPSULE PO SCH (08:18)
[2016-11-17] MEDS: AMLODIPINE 5 MG TABLET PO SCH (08:18)
[2016-11-17] MEDS: ASPIRIN 81 MG TABLET EC PO SCH (08:18)
[2016-11-17] MEDS: SENNA/DOCUSATE TABLET PO SCH (08:19)
[2016-11-17] MEDS: ONDANSETRON ODT 4 MG BC PRN (10:37)
[2016-11-17] MEDS ORDERED: LEVO125T PO (12:04)
[2016-11-17] MEDS ORDERED: ROPI1TAB PO (12:04)
[2016-11-17] MEDS ORDERED: SENN1TAB7 PO (12:04)
[2016-11-17] MEDS ORDERED: CEFD300C37 PO (12:20)
== END 2016-11-17 12:50 | disposition home or self-care (01) | DRG 682 ==
LOC: ED 17:37 → INTOOBSV 19:15 → EDIP 19:15 → OBSVTOIN 19:46 → 4EST 20:50
PROC: 3E1M39Z Irrigation of Peritoneal Cavity using Dialysate, Percutaneous Approach (ICD-10-PCS; principal; 2016-11-15)
DX: I12.0 Hypertensive chronic kidney disease with stage 5 chronic kidney disease or end stage renal disease (principal); N18.6 End stage renal disease; E87.2 Acidosis; E44.0 Moderate protein-calorie malnutrition; E87.1 Hypo-osmolality and hyponatremia; N39.0 Urinary tract infection, site not specified; T82.858A Stenosis of other vascular prosthetic devices, implants and grafts, initial encounter; D63.1 Anemia in chronic kidney disease; E03.9 Hypothyroidism, unspecified; E11.22 Type 2 diabetes mellitus with diabetic chronic kidney disease; E55.9 Vitamin D deficiency, unspecified; E87.70 Fluid overload, unspecified; E21.1 Secondary hyperparathyroidism, not elsewhere classified; F41.9 Anxiety disorder, unspecified; G25.81 Restless legs syndrome; Z79.4 Long term (current) use of insulin; Z83.3 Family history of diabetes mellitus; Z68.22 Body mass index [BMI] 22.0-22.9, adult; Z99.2 Dependence on renal dialysis; Z90.49 Acquired absence of other specified parts of digestive tract; Z88.8 Allergy status to other drugs, medicaments and biological substances
CPT/HCPCS: 36415; 80048; 80053; 80069; 81001; 82040; 82306; 82436; 82728; 82962; 83036; 83540; 83550; 83735; 83930; 83935; 83970; 84100; 84133; 84295; 84300; 84439; 84443; 85025; 87077; 87086; 87186; 93005; 93990; 96372; J0696; J0881; J1170; J1644; J1815; J2405; Q0162; G0378; J0360; J7030

== ENCOUNTER 2016-11-21 15:06 | Emergency (ER) | payer MEDICARE, MEDICAID ==
[~2016-11-21] VITALS: Ht 157.5 cm; Wt 53.8 kg
[~2016-11-21 15:06] MED LIST changes: +CEFD300C37 PO; +DOCU-131 PO; -DOCU-30 PO; +LEVO125T PO; +ROPI1TAB PO; +SENN1TAB7 PO
[2016-11-21] MEDS ORDERED: SODIUM CHLORIDE 0.9% 1,000 ML IV ONE (15:33)
[2016-11-21] MEDS ORDERED: ASPIRIN 81 MG TABLET CHEW ONE (15:49)
[2016-11-21] MEDS ORDERED: ASPIRIN 81 MG TABLET CHEW PO ONE (16:00)
[2016-11-21] MEDS ORDERED: SODIUM CHLORIDE FLUSH 10ML SYR IVF ONE (16:00)
[2016-11-21] MEDS ORDERED: ONDANSETRON 2MG/ML, 2ML IVPush ONE (16:00)
[2016-11-21 16:06] LABS: ASPARTATE AMINO TRANSFERASE 54 U/L (15-37); BLOOD UREA NITROGEN 55 mg/dL (7-18)
[2016-11-21 16:08] LABS: HEMATOCRIT 31.3 % (34.6-47.8); HEMOGLOBIN 10.3 g/dL (11.7-16.4); WHITE BLOOD COUNT 11.9 x10^3/uL (3.4-10)
[2016-11-21 16:13] LABS: IS PT STATUS REG ER OR PRE ER? YES
[2016-11-21] MEDS ORDERED: ONDANSETRON 2MG/ML, 2ML ONE (16:50)
[2016-11-21 17:10] VITALS: BP 155/85
== END 2016-11-21 17:13 | disposition home or self-care (01) ==
LOC: ED 17:07
DX: R07.89 Other chest pain (principal); E87.1 Hypo-osmolality and hyponatremia; E87.6 Hypokalemia; G25.81 Restless legs syndrome; E11.22 Type 2 diabetes mellitus with diabetic chronic kidney disease; E11.65 Type 2 diabetes mellitus with hyperglycemia; I12.9 Hypertensive chronic kidney disease with stage 1 through stage 4 chronic kidney disease, or unspecified chronic kidney disease; N18.9 Chronic kidney disease, unspecified; Z99.2 Dependence on renal dialysis; Z90.49 Acquired absence of other specified parts of digestive tract
CPT/HCPCS: 36415; 71010; 80053; 83880; 84484; 85025; 93005; 96374; 99285; J2405

== ENCOUNTER 2016-12-01 22:49 | Emergency (ER) | payer MEDICARE, MEDICAID ==
[~2016-12-01] VITALS: Ht 160 cm; Wt 52.0 kg
[2016-12-01] MEDS ORDERED: ONDANSETRON ODT 4 MG ONE (23:42)
[2016-12-01] MEDS ORDERED: MECLIZINE CHEWABLE 25 MG TAB ONE (23:42)
[2016-12-02] MEDS ORDERED: MECLIZINE CHEWABLE 25 MG TAB PO ONE
[2016-12-02 00:02] LABS: HEMATOCRIT 28.8 % (34.6-47.8); HEMOGLOBIN 9.6 g/dL (11.7-16.4); WHITE BLOOD COUNT 7.6 x10^3/uL (3.4-10)
[2016-12-02 00:14] LABS: ASPARTATE AMINO TRANSFERASE 27 U/L (15-37); BLOOD UREA NITROGEN 61 mg/dL (7-18)
[2016-12-02 00:19] LABS: IS PT STATUS REG ER OR PRE ER? YES
[2016-12-02 01:45] VITALS: BP 137/66
== END 2016-12-02 01:48 | disposition home or self-care (01) ==
LOC: ED 23:37
DX: R42 Dizziness and giddiness (principal); R11.2 Nausea with vomiting, unspecified; I12.9 Hypertensive chronic kidney disease with stage 1 through stage 4 chronic kidney disease, or unspecified chronic kidney disease; E11.22 Type 2 diabetes mellitus with diabetic chronic kidney disease; N18.9 Chronic kidney disease, unspecified; E11.65 Type 2 diabetes mellitus with hyperglycemia
CPT/HCPCS: 36415; 70450; 80053; 84484; 85025; 93005; 99285

== ENCOUNTER 2016-12-17 15:07 | Emergency (ER) | payer MEDICARE, MEDICAID ==
[~2016-12-17] VITALS: Ht 157.5 cm; Wt 53.7 kg
[2016-12-17 15:52] LABS: HEMOGLOBIN 11.7 g/dL (11.7-16.4); WHITE BLOOD COUNT 8.3 x10^3/uL (3.4-10)
[2016-12-17 15:59] LABS: BLOOD UREA NITROGEN 57 mg/dL (7-18)
[2016-12-17 18:37] VITALS: BP 140/65
== END 2016-12-17 18:39 | disposition home or self-care (01) ==
LOC: ED 18:37
DX: G25.81 Restless legs syndrome (principal); I12.9 Hypertensive chronic kidney disease with stage 1 through stage 4 chronic kidney disease, or unspecified chronic kidney disease; E11.22 Type 2 diabetes mellitus with diabetic chronic kidney disease; N18.9 Chronic kidney disease, unspecified; Z88.8 Allergy status to other drugs, medicaments and biological substances
CPT/HCPCS: 36415; 71020; 80048; 82040; 82962; 85025; 93005; 99285

== ENCOUNTER 2017-02-09 09:17 | Emergency (ER) | payer MEDICARE, MEDICAID ==
[~2017-02-09] VITALS: Ht 157.5 cm; Wt 52.4 kg
[2017-02-09 09:52] LABS: HEMATOCRIT 37.9 % (34.6-47.8); HEMOGLOBIN 12.2 g/dL (11.7-16.4); WHITE BLOOD COUNT 6.8 x10^3/uL (3.4-10)
[2017-02-09] MEDS ORDERED: METOPROLOL 1 MG/ML, 5ML ONE ×2 (10:03→10:32)
[2017-02-09 10:04] LABS: BLOOD UREA NITROGEN 55 mg/dL (7-18)
[2017-02-09] MEDS: METOPROLOL 1 MG/ML, 5ML IVPush PRN ×2 (10:04→10:33)
[2017-02-09 11:02] VITALS: BP 163/71
== END 2017-02-09 11:33 | disposition home or self-care (01) ==
LOC: ED 11:00
DX: I12.9 Hypertensive chronic kidney disease with stage 1 through stage 4 chronic kidney disease, or unspecified chronic kidney disease (principal); E11.22 Type 2 diabetes mellitus with diabetic chronic kidney disease; N18.9 Chronic kidney disease, unspecified; Z88.8 Allergy status to other drugs, medicaments and biological substances
CPT/HCPCS: 36415; 71010; 80048; 82040; 83735; 84100; 85025; 93005; 96374

== ENCOUNTER 2018-01-10 11:42 | Emergency (ER) | payer MEDICARE, BC ==
[~2018-01-10] VITALS: Ht 157.5 cm; Wt 52.3 kg
[~2018-01-10 11:42] MED LIST changes: -SENN1TAB7 PO; +SENN1TAB8 PO
[2018-01-10 12:35] LABS: BASOPHILS # (AUTO) 0.05 x10^3/uL (0-0.1); BASOPHILS % (AUTO) 1 % (0-1); EOSINOPHILS # (AUTO) 0.21 x10^3/uL (0-0.4); EOSINOPHILS % (AUTO) 2 % (1-7); LYMPHOCYTES % (AUTO) 10 % (22-44); MD NO; MEAN CORPUSCULAR HEMOGLOBIN 30.1 pg (27.0-34.8); MEAN CORPUSCULAR HGB CONC 33.6 g/dL (32.4-35.8); MEAN CORPUSCULAR VOLUME 89.8 fL (80-100); MEAN PLATELET VOLUME 8.8 fL (7.4-10.4); MONOCYTES # (AUTO) 0.45 x10^3/uL (0.2-0.8); MONOCYTES % (AUTO) 5 % (2-9); NEUTROPHILS # (AUTO) 8.13 x10^3/uL (1.8-6.8); NEUTROPHILS % (AUTO) 83 % (42-75); PLATELET COUNT 328 x10^3/uL (130-400); RED BLOOD COUNT 3.01 x10^6/uL (3.82-5.3); RED CELL DISTRIBUTION WIDTH 15.6 % (9.6-15.2)
[2018-01-10 12:40] LABS: ALANINE AMINOTRANSFERASE 15 U/L (12-78); ALBUMIN 3.5 g/dL (3.4-5.0); ANION GAP 11 mmol/L (5-15); CALCIUM 9.2 mg/dL (8.5-10.1); CHLORIDE 90 mmol/L (98-107)
[2018-01-10 12:42] LABS: ALKALINE PHOSPHATASE 85 U/L (45-117); BILIRUBIN,TOTAL 0.4 mg/dL (0.2-1.0); TOTAL PROTEIN 7.7 g/dL (6.4-8.2)
[2018-01-10 14:07] VITALS: BP 164/70
== END 2018-01-10 14:09 | disposition home or self-care (01) ==
LOC: ED 12:39
DX: R42 Dizziness and giddiness (principal); I12.9 Hypertensive chronic kidney disease with stage 1 through stage 4 chronic kidney disease, or unspecified chronic kidney disease; E11.22 Type 2 diabetes mellitus with diabetic chronic kidney disease; N18.9 Chronic kidney disease, unspecified; Z90.49 Acquired absence of other specified parts of digestive tract
CPT/HCPCS: 36415; 80053; 83735; 84100; 85025; 93005; 99285